=== PATIENT | male | born 2000 | race Caucasian/White ===

== ENCOUNTER 2021-01-17 16:17 | Emergency (ER) | payer MEDICAID ==
[2021-01-17] MEDS ORDERED: Alum Hydroxide/Mag Hydroxide 15 ML, Lidocaine 2% 15 ML PO ONE ×2 (16:32)
[2021-01-17] MEDS ORDERED: Sodium Chloride 0.9% 10 ML Syringe FLUSH PRN (16:37)
[2021-01-17] MEDS ORDERED: Sodium Chloride 0.9% 1,000 ML IV SCH (16:45)
--- NOTE | 2021-01-17 17:25 | EDM.PDOC ---
ED HPI GENERAL MEDICAL PROBLEM - General Stated Complaint: ABD PAIN Time Seen by Provider: 01/17/21 16:20 Source of Information: Reports: Patient, Family History Limitations: Reports: No Limitations - History of Present Illness INITIAL COMMENTS - FREE TEXT/NARRATIVE: Patient is a 20 YO WM who presented to the ED because of epigastric and LLQ pain for 2-3 months. It's an ache that doesn't seem to get away. At worse it's 8/10. He c/o lost of appetite,denies any N/V/D. Abdomen Pain Score (Numeric/FACES): 8 - Related Data Allergies Allergy/AdvReac Type Severity Reaction Status Date / Time No Known Allergies Allergy Verified 01/17/21 17:28 Home Meds: Home Meds Omeprazole 20 mg PO DAILY #60 cap.cr 01/17/21 [Rx] ED ROS GENERAL - Review of Systems Review Of Systems: See Below Constitutional: Reports: No Symptoms HEENT: Reports: No Symptoms Respiratory: Reports: No Symptoms Cardiovascular: Reports: No Symptoms Endocrine: Reports: No Symptoms GI/Abdominal: Reports: Abdominal Pain, Decreased Appetite : Reports: No Symptoms Musculoskeletal: Reports: No Symptoms Skin: Reports: No Symptoms Neurological: Reports: No Symptoms Psychiatric: Reports: No Symptoms ED EXAM, GI/ABD - Physical Exam Exam: See Below Exam Limited By: No Limitations General Appearance: Alert, No Apparent Distress Ears: Normal External Exam, Normal Canal Nose: Normal Inspection, Normal Mucosa Throat/Mouth: Normal Inspection, Normal Lips, Normal Teeth Head: Atraumatic, Normocephalic Neck: Normal Inspection, Supple, Non-Tender, Full Range of Motion Respiratory/Chest: No Respiratory Distress, Lungs Clear, Normal Breath Sounds, No Accessory Muscle Use, Chest Non-Tender Cardiovascular: Normal Peripheral Pulses, Regular Rate, Rhythm, No Edema, No JVD, No Murmur GI/Abdominal Exam: Normal Bowel Sounds, Soft, No Organomegaly, Other (epigastric and LLQ T) Extremities: Normal Inspection, Normal Range of Motion, Non-Tender Neurological: Alert, Oriented, CN II-XII Intact, Normal Cognition, Normal Gait, Normal Reflexes, No Motor/Sensory Deficits Psychiatric: Normal Affect Course - Vital Signs Text/Narrative:: Lab/CT result was reviewed and discussed with patient GI cocktail po x1 NS 1 L bolus Last Recorded V/S: Last Vital Signs Temp 37.2 C 01/17/21 17:00 Pulse 60 01/17/21 17:00 Resp 16 01/17/21 17:00 BP 131/80 01/17/21 17:00 Pulse Ox 98 01/17/21 17:00 - Orders/Labs/Meds Orders: Active Orders 24 hr Category Date Time Status Abdomen Pelvis w Cont [CT] Stat Exams 01/17/21 16:37 Taken Sodium Chloride 0.9% [Normal Saline] 1,000 ml Med 01/17/21 16:45 Active IV ASDIRECTED Sodium Chloride 0.9% [Saline Flush] Med 01/17/21 16:37 Active 10 ml FLUSH ASDIRECTED PRN Saline Lock Insert [OM.PC] Routine Oth 01/17/21 16:37 Ordered Medication Orders Sodium Chloride (Normal Saline) 1,000 mls @ 999 mls/hr IV ASDIRECTED ANDREINA Last Admin: 01/17/21 17:15 Dose: 999 mls/hr Documented by: [place]AN Sodium Chloride (Sodium Chloride 0.9% 10 Ml Syringe) 10 ml FLUSH ASDIRECTED PRN PRN Reason: Keep Vein Open Labs: Laboratory Tests 01/17/21 01/17/21 01/17/21 Range/Units 16:53 16:53 16:53 WBC 5.4 (3.2-10.1) x10-3/uL RBC 5.04 (3.90-5.90) x10(6)uL Hgb 16.1 (12.9-17.7) g/dL Hct 45.8 (38.3-50.1) % MCV 91.0 (80.8-98.7) fL MCH 31.9 (27.0-33.3) pg MCHC 35.1 (28.7-35.3) g/dL RDW 12.0 L (12.4-15.0) % Plt Count 214 (117-477) x10(3)uL MPV 8.7 (6.7-11.0) fL Neut % (Auto) 54.5 (40.3-71.8) % Lymph % (Auto) 32.5 (15.8-45.3) % Granite % (Auto) 7.1 (5.5-15.2) % Eos % (Auto) 5.4 (0.1-6.8) % Baso % (Auto) 0.5 (0.3-3.8) % Neut # (Auto) 2.9 (1.7-6.9) x10-3/uL Lymph # (Auto) 1.7 (0.5-4.5) x10-3/uL Granite # (Auto) 0.4 (0.0-1.2) x10-3/uL Eos # (Auto) 0.3 (0.0-0.6) x10-3/uL Baso # (Auto) 0.0 (0.0-0.3) x10-3/uL Sodium 141 (135-145) mmol/L Potassium 3.9 (3.5-5.3) mmol/L Chloride 103 (100-110) mmol/L Carbon Dioxide 27 (21-32) mmol/L BUN 16 (7-18) mg/dL Creatinine 1.0 (0.70-1.30) mg/dL Est Cr Clr Drug Dosing TNP Estimated GFR (MDRD) > 60 (>60) BUN/Creatinine Ratio 16.0 (9-20) Glucose 102 (80-116) mg/dL Calcium 9.1 (8.6-10.2) mg/dL Total Bilirubin 2.4 H (0.1-1.3) mg/dL AST 28 H (5-25) IU/L ALT 76 H (12-36) U/L Alkaline Phosphatase 84 (56-112) IU/L Total Protein 8.0 (6.0-8.0) g/dL Albumin 4.5 (3.5-5.2) g/dL Globulin 3.5 g/dL Albumin/Globulin Ratio 1.3 Amylase 54 (25-115) U/L Lipase 62 L (73-393) U/L Urine Color (YELLOW) Urine Appearance (CLEAR) Urine pH (5.0-6.5) Ur Specific Ovalo (1.010-1.025) Urine Protein (NEGATIVE) mg/dL Urine Glucose (UA) (NORMAL) mg/dL Urine Ketones (NEGATIVE) mg/dL Urine Occult Blood (NEGATIVE) Urine Nitrite (NEGATIVE) Urine Bilirubin (NEGATIVE) Urine Urobilinogen (NEGATIVE) mg/dL Ur Leukocyte Esterase (NEGATIVE) Urine RBC (0-5) Urine WBC (0-5) Ur Squamous Epith Cells (NS,R,O) Urine Bacteria (NS) 01/17/21 Range/Units 17:39 WBC (3.2-10.1) x10-3/uL RBC (3.90-5.90) x10(6)uL Hgb (12.9-17.7) g/dL Hct (38.3-50.1) % MCV (80.8-98.7) fL MCH (27.0-33.3) pg MCHC (28.7-35.3) g/dL RDW (12.4-15.0) % Plt Count (117-477) x10(3)uL MPV (6.7-11.0) fL Neut % (Auto) (40.3-71.8) % Lymph % (Auto) (15.8-45.3) % Granite % (Auto) (5.5-15.2) % Eos % (Auto) (0.1-6.8) % Baso % (Auto) (0.3-3.8) % Neut # (Auto) (1.7-6.9) x10-3/uL Lymph # (Auto) (0.5-4.5) x10-3/uL Granite # (Auto) (0.0-1.2) x10-3/uL Eos # (Auto) (0.0-0.6) x10-3/uL Baso # (Auto) (0.0-0.3) x10-3/uL Sodium (135-145) mmol/L Potassium (3.5-5.3) mmol/L Chloride (100-110) mmol/L Carbon Dioxide (21-32) mmol/L BUN (7-18) mg/dL Creatinine (0.70-1.30) mg/dL Est Cr Clr Drug Dosing Estimated GFR (MDRD) (>60) BUN/Creatinine Ratio (9-20) Glucose (80-116) mg/dL Calcium (8.6-10.2) mg/dL Total Bilirubin (0.1-1.3) mg/dL AST (5-25) IU/L ALT (12-36) U/L Alkaline Phosphatase (56-112) IU/L Total Protein (6.0-8.0) g/dL Albumin (3.5-5.2) g/dL Globulin g/dL Albumin/Globulin Ratio Amylase (25-115) U/L Lipase (73-393) U/L Urine Color Yellow (YELLOW) Urine Appearance Clear (CLEAR) Urine pH 6.0 (5.0-6.5) Ur Specific Ovalo 1.020 (1.010-1.025) Urine Protein Negative (NEGATIVE) mg/dL Urine Glucose (UA) Normal (NORMAL) mg/dL Urine Ketones Negative (NEGATIVE) mg/dL Urine Occult Blood Negative (NEGATIVE) Urine Nitrite Negative (NEGATIVE) Urine Bilirubin Negative (NEGATIVE) Urine Urobilinogen Normal (NEGATIVE) mg/dL Ur Leukocyte Esterase Negative (NEGATIVE) Urine RBC 0-5 (0-5) Urine WBC 0-5 (0-5) Ur Squamous Epith Cells Occasional (NS,R,O) Urine Bacteria Few H (NS) Meds: Medications Generic Name Dose Route Start Last Admin Trade Name Freq PRN Reason Stop Dose Admin Sodium Chloride 1,000 mls @ 999 mls/hr 01/17/21 16:45 01/17/21 17:15 Normal Saline IV 999 mls/hr ASDIRECTED ANDREINA Administration Sodium Chloride 10 ml 01/17/21 16:37 Sodium Chloride 0.9% 10 Ml Syringe FLUSH ASDIRECTED PRN Keep Vein Open Discontinued Medications Generic Name Dose Route Start Last Admin Trade Name Freq PRN Reason Stop Dose Admin Al Hydroxide/Mg Hydroxide 15 0 ml 01/17/21 16:32 01/17/21 16:54 ml/ Lidocaine HCl 15 ml PO 01/17/21 16:33 30 ml ONETIME ONE Administration Iopamidol 100 ml 01/17/21 17:29 01/17/21 17:30 Iopamidol 755 Mg/Ml 100 Ml Bottle IV 01/17/21 17:30 95 ml . DIRECTED ONE Administration Departure - Departure Time of Disposition: 18:35 Disposition: Home, Self-Care 01 Condition: Good Clinical Impression: GERD (gastroesophageal reflux disease), Gastritis - Discharge Information Prescriptions: Omeprazole 20 mg PO DAILY #60 cap.cr Instructions: Gastritis, Adult, [id number], Gastroesophageal Reflux Disease, Adult, [id number], Food Choices for Gastroesophageal Reflux Disease, Adult, [id number] Additional Instructions: Please read discharge instructions on GERD/Acid reflux,Gastritis Read the food and beverages that can make your acid reflux worse Omeprazole 20 mg daily for 2 months Follow up with your doctor if your pain persist after 2 months of taking omeprazole. Sepsis Event Note (ED) - Focused Exam Vital Signs: Vital Signs Temp Pulse Resp BP Pulse Ox 01/17/21 17:00 37.2 C 60 16 131/80 98 - My Orders Last 24 Hours: My Active Orders 01/17/21 16:37 Abdomen Pelvis w Cont [CT] Stat Sodium Chloride 0.9% [Saline Flush] 10 ml FLUSH ASDIRECTED PRN Saline Lock Insert [OM.PC] Routine 01/17/21 16:45 Sodium Chloride 0.9% [Normal Saline] 1,000 ml IV ASDIRECTED - Assessment/Plan Last 24 Hours: My Active Orders 01/17/21 16:37 Abdomen Pelvis w Cont [CT] Stat Sodium Chloride 0.9% [Saline Flush] 10 ml FLUSH ASDIRECTED PRN Saline Lock Insert [OM.PC] Routine 01/17/21 16:45 Sodium Chloride 0.9% [Normal Saline] 1,000 ml IV ASDIRECTED
[2021-01-17] MEDS ORDERED: Iopamidol 755 Mg/ML 100 ML Bottle IV ONE (17:29)
--- NOTE | 2021-01-17 19:30 | CT ---
INDICATION: Epigastric and left lower quadrant pain. CT ABDOMEN AND PELVIS WITH CONTRAST [id number]: Spiral 3.75 mm axial images were obtained through the abdomen and pelvis with 95 mL [id number]-[id number] at 2.2 mL/second, with sagittal and coronal reconstructions 01/17/21-no comparisons. Total exam DLP was 546.89 mGy/cm. The lower lung pena and pleural spaces visualized appear normal. The heart is normal in size and shape. The upper abdominal organs including the liver, gallbladder, adrenal glands, kidneys and pancreas appear normal. The spleen is somewhat prominent in size, measuring approximately 14.75 cm, compatible with a mild degree of splenomegaly. This should be correlated clinically. The appendix appears normal visualized on axial images 91 through 97 and coronal images 27 through 32. No evidence of free air or bowel obstruction was identified. However, there is thickening of the wall of the transverse colon and to a lesser extent, descending colon. A process such as Crohn's disease may be present, but should be correlated clinically. Also, colitis was felt to be less likely, but cannot be excluded. No retroperitoneal mass was seen. The stomach appeared grossly normal. No additional organomegaly, mass lesions or free fluid collections were identified in the abdomen or pelvis, except to note some thickening of the wall of the urinary bladder, which could represent cystitis. IMPRESSION: 1. Abnormal colon, mostly transverse colon and descending, raising question of colitis, possibly regional. Enteritis-Crohn's disease-correlate clinically. 2. Splenomegaly. 3. Slight thickening of the wall of the urinary bladder, which may be on the basis of cystitis, but should be correlated clinically. Report was called to Dr. High at 1818 hours, 01/17/21. [facility]
== END 2021-01-17 18:47 | disposition home or self-care (01) ==
LOC: FB.ED 16:17
DX: K29.70 Gastritis, unspecified, without bleeding (principal); K21.9 Gastro-esophageal reflux disease without esophagitis; Z79.899 Other long term (current) drug therapy
CPT/HCPCS: 36415; 74177; 80053; 81001; 82150; 83690; 85025; 99284-25; A9270-GY; J7030; Q9967

== ENCOUNTER 2022-01-06 21:06 | Emergency (ER) | payer MEDICAID ==
[2022-01-06 21:54] LABS: ESTIMATED GFR 110 mL/min (>60)
[2022-01-06] MEDS: Ondansetron 4 MG Tab.DIS PO ONE (22:35)
== END 2022-01-06 22:38 | disposition home or self-care (01) ==
LOC: FB.ED 21:06
DX: U07.1 COVID-19 (principal); F17.210 Nicotine dependence, cigarettes, uncomplicated
CPT/HCPCS: 36415; 80048; 85025; 99283; Q0162; U0002